=== PATIENT | female | born 1965 ===

== ENCOUNTER 2017-02-22 18:36 | Emergency (ER) | payer MEDICARE ==
--- NOTE | 2017-02-22 19:06 | ED PDOC ---
HPI: General Adult Time Seen by Provider: 02/22/17 18:45 Chief Complaint (Provider): Right Sided Facial Spasms History Per: Patient History/Exam Limitations: no limitations Onset/Duration Of Symptoms: Days (x3) Have you had recent travel within the past 21 days to any of the following countries: [place], [place], [place] or [place]?: No Current Symptoms Are (Timing): Still Present Additional Complaint(s): Heydi Lamb, a 51 year old female, who has a past medical history of spinal cord fracture presents to the ED with right sided facial spasms she has been experiencing since Saturday. The patient states that her symptoms began while she was getting her EMG done on her arms. She reports that this is her fifth episode and her symptoms occur intermittently. As per patient, she was evaluated by a neurologist who states that he was unsure whether she had a stroke or renteria's palsy. NIHSS Stroke Scale - Date/Time Evaluation Performed Date Performed: 02/22/17 - How Severe is the Stroke Level of Consciousness: 0=Alert LOC to Questions: 0=Both comments correct LOC to commands: 0=Obeys both correctly Best Gaze: 0=Normal Visual: 0=No visual loss Facial: 0=Normal Motor Arm - Left: 0=No drift Motor Arm - Right: 0=No drift Motor Leg - Left: 0=No drift Motor Leg - Right: 0=No drift Limb Ataxia: 0=Absent Sensory: 0=Normal Best Language: 0=No aphasia Dysarthia: 0=Normal articulation Extinction & Inattention (Neglect): 0=Normal, no object Score: 0 Past Medical History Reviewed: Historical Data, Nursing Documentation, Vital Signs Vital Signs: Last Vital Signs Temp 97.8 F 02/22/17 21:39 Pulse 78 02/22/17 21:39 Resp 19 02/22/17 21:39 BP 120/78 02/22/17 21:39 Pulse Ox 98 02/22/17 21:39 - Medical History PMH: Back Problems Denies: Diabetes, Hepatitis, HIV, HTN, Seizures, Sexually Transmitted Disease - Surgical History Surgical History: No Surg Hx - Family History Family History: States: Unknown Family Hx - Home Medications Home Medications: Ambulatory Orders Medication Instructions Recorded Amoxicillin/Clavulanate [Augmentin 1 tab PO BID #14 tab 08/12/15 875 MG-125 MG] predniSONE [predniSONE Tab] 20 mg PO DAILY #15 tab 08/12/15 Bacitracin Ointment [Bacitracin] 0.5 gm TOP BID #1 tube 05/26/16 Cephalexin [cephalexin] 500 mg PO TID #15 cap 05/26/16 valACYclovir [Valtrex] 1 gm PO TID #30 tab 05/26/16 Clindamycin [Cleocin] 300 mg PO TID 7 Days cap 02/22/17 - Allergies Allergies/Adverse Reactions: Allergies Allergy/AdvReac Type Severity Reaction Status Date / Time No Known Allergies Allergy Verified 02/22/17 19:02 Review of Systems ROS Statement: Except As Marked, All Systems Reviewed And Found Negative Constitutional: Positive for: Other (right facial spasms) Physical Exam - Reviewed Nursing Documentation Reviewed: Yes Vital Signs Reviewed: Yes - Physical Exam Appears: Positive for: Non-toxic, No Acute Distress Head Exam: Positive for: ATRAUMATIC, NORMAL INSPECTION (right facial spasm distracable ), NORMOCEPHALIC Skin: Positive for: Normal Color, Warm, Dry. Negative for: Rash Eye Exam: Positive for: Normal appearance, EOMI, PERRL. Negative for: Nystagmus Neck: Positive for: Normal, Painless ROM, Supple Cardiovascular/Chest: Positive for: Regular Rate, Rhythm, Chest Non Tender. Negative for: Tachycardia Respiratory: Positive for: Normal Breath Sounds. Negative for: Rales, Rhonchi, Wheezing, Respiratory Distress Gastrointestinal/Abdominal: Positive for: Normal Exam, Bowel Sounds, Soft. Negative for: Tenderness, Mass, Guarding, Rebound Back: Positive for: Normal Inspection. Negative for: L CVA Tenderness, R CVA Tenderness Extremity: Positive for: Normal ROM. Negative for: Tenderness, Deformity, Swelling Neurologic/Psych: Positive for: Alert, Oriented, Gait - Laboratory Results Result Diagrams: 02/22/17 19:20 02/22/17 19:20 - ECG O2 Sat by Pulse Oximetry: 100 (RA) Pulse Ox Interpretation: Normal Medical Decision Making Medical Decision Makin Initial Impression 51 year old female presenting with right sided facial spasm Initial Plan: * Type and Screen * CT Head w/o Contrast * EKG * CMP * Hemoglobin A1C * Lipid Panel * Troponin * CBC * Partial Thromboplastin * CXR * Glucose, Blood, PO * Vital Signs [id number] * Reevaluation Scribe Attestation Documented by Patricia Gonzalez acting as a scribe for Laura Bailey MD. Provider Attestation All medical record entries made by the Scribe were at my direction and personally dictated by me. I have reviewed the chart and agree that the record accurately reflects my personal performance of the history, physical exam, medical decision making, and the department course for this patient. I have also personally directed, reviewed, and agree with the discharge instructions and disposition. Disposition - Clinical Impression Clinical Impression: Dental abscess, Facial paresthesia - Patient ED Disposition Is Patient to be Admitted: Transfer of Care - Disposition Referrals: [facility] [Outside] Disposition: Transfer of Care Disposition Time: 19:00 Condition: STABLE Prescriptions: Clindamycin [Cleocin] 300 mg PO TID 7 Days cap Instructions: Dental Abscess (ED), Dental Caries (ED), Paresthesia (ED) Forms: [employer] (Occitan) Patient Signed Over To: Raphael Jensen
--- NOTE | 2017-02-22 19:17 | ED PDOC ---
- Laboratory Results Result Diagrams: 02/22/17 19:20 02/22/17 19:20 - ECG O2 Sat by Pulse Oximetry: 100 (RA) Pulse Ox Interpretation: Normal Medical Decision Making Medical Decision Making: Patient signed out to provider from Dr. Bailey at 1900 pending labs. 9PM: Workup negative. Informed patient of results, during exam, facial droop shifts from R to L back to R, patient states that this is normal for her and that she has had multiple workups that are inconclusive. She states that she came to ER more for prescription for antibiotics for a dental infection. Pt. has poor dentition and evidence of gingivitis and possible gum abscess. Stressed the importance of both dental followup and neuro followup. Pt. understands importance of this. Will prescribe clinda and d/c home. Return precautions given.. Scribe Attestation Documented by Patricia Gonzalez acting as a scribe for Raphael Jensen MD. Provider Attestation All medical record entries made by the Scribe were at my direction and personally dictated by me. I have reviewed the chart and agree that the record accurately reflects my personal performance of the history, physical exam, medical decision making, and the department course for this patient. I have also personally directed, reviewed, and agree with the discharge instructions and disposition. Disposition - Clinical Impression Clinical Impression: Dental abscess, Facial paresthesia - POA Present On Arrival: None - Disposition Referrals: [facility] [Outside] Disposition: Routine/Home Disposition Time: 21:00 Condition: STABLE Prescriptions: Clindamycin [Cleocin] 300 mg PO TID 7 Days cap Instructions: Dental Abscess (ED), Dental Caries (ED), Paresthesia (ED) Forms: [facility] (Yakut)
[2017-02-22 19:48] LABS: BASO # 0.1 K/uL (0.0-0.2); EOS # 0.1 K/uL (0.0-0.7); EOS % 0.5 % (0.0-4.0); LYMPH # 2.2 K/uL (1.0-4.3); LYMPH % 17.6 % (20.0-40.0); MEAN CELL VOLUME 89.5 fl (81.0-99.0); MEAN CORPUSCULAR HEMOGLOBIN 28.9 pg (27.0-31.0); MEAN CORPUSCULAR HGB CONC 32.3 g/dL (33.0-37.0); MEAN PLATELET VOLUME 7.6 fl (7.2-11.7); MONO # 0.7 K/uL (0.0-0.8); MONO % 5.5 % (0.0-10.0); NEUT # 9.6 K/uL (1.8-7.0); NEUT % 75.4 % (50.0-75.0); RED CELL DISTRIBUTION WIDTH 13.6 % (11.5-14.5); WHITE BLOOD COUNT 12.7 K/uL (4.8-10.8)
[2017-02-22 19:55] LABS: ALB/GLOB RATIO 1.3 (1.0-2.1); ALKALINE PHOSPHATASE 84 U/L (38-126); ALT/SGPT 38 U/L (9-52); AST/SGOT 25 U/L (14-36); BILIRUBIN,TOTAL 0.4 mg/dl (0.2-1.3); BLOOD UREA NITROGEN 15 mg/dl (7-17); CALCIUM 9.4 mg/dL (8.4-10.2); CARBON DIOXIDE 24 mmol/L (22-30); CHLORIDE 107 mmol/L (98-107); CHOLESTEROL 229 mg/dL (0-199); GFR AFRICAN-AMERICAN > 60; GLUCOSE,RANDOM 83 mg/dL (65-105); POTASSIUM 3.6 MMOL/L (3.6-5.0); SODIUM 140 mmol/l (132-148); TOTAL PROTEIN 7.3 G/DL (6.3-8.2)
[2017-02-22 20:11] LABS: PARTIAL THROMBOPLASTIN TIME 32.3 Seconds (25.6-37.1)
--- NOTE | 2017-02-22 20:27 | CT ---
EXAM: CT Head Without Intravenous Contrast EXAM DATE/TIME: 02/22/2017 6:49 PM CLINICAL HISTORY: 51 years old, female; Signs and symptoms; Other: Rt facial spasm; Patient HX: HX of cervical spinal cord FX; Additional info: R facial spasm TECHNIQUE: Axial computed tomography images of the head/brain without intravenous contrast. All CT scans at this facility use one or more dose reduction techniques, viz.: automated exposure control; ma/kV adjustment per patient size (including targeted exams where dose is matched to indication; i.e. head); or iterative reconstruction technique. Coronal and sagittal reformatted images were created and reviewed. COMPARISON: Prior head CT of 2016-04-04 FINDINGS: BRAIN: Diffuse, mild, age-related cortical atrophy and ventriculomegaly. No significant acute abnormality identified. No acute hemorrhage seen within the brain. No acute extra-axial fluid collections visualized. No evidence of significant mass effect within the brain. No CT findings to suggest an acute, large territorial infarct, however, small or early acute infarcts may not be visible on CT. VENTRICLES: See above. BONES/JOINTS: No acute fractures or other acute bony abnormality noted. SOFT TISSUES: No acute abnormality of the visualized soft tissues is seen. SINUSES: Visualized paranasal sinuses appear clear. MASTOID AIR CELLS: Mastoid air cells appear clear. IMPRESSION: - No acute findings seen within the brain. - See above for remaining findings.
[2017-02-22 21:40] VITALS: BP 120/78; PULSE 78; RESP 19; TEMP 97.8
--- NOTE | 2017-02-23 09:52 | RAD ---
HISTORY: Facial spasm COMPARISON: Chest radiograph 03/27/2016. FINDINGS: LUNGS: No active pulmonary disease. PLEURA: No significant pleural effusion identified, no pneumothorax apparent. CARDIOVASCULAR: Normal. OSSEOUS STRUCTURES: No significant abnormalities. VISUALIZED UPPER ABDOMEN: Normal. OTHER FINDINGS: None. IMPRESSION: No interval acute cardiopulmonary disease appreciated.
[2017-02-24 13:46] VITALS: O2SAT 100
--- NOTE | 2017-02-25 12:41 | CARD ---
APPROVED REPORT EKG Measurement Heart [id number] <Conclusion> Normal sinus rhythm Normal ECG
== END 2017-02-22 21:40 | disposition home or self-care (01) ==
LOC: H.ER 18:36
DX: K04.7 Periapical abscess without sinus (principal); R20.2 Paresthesia of skin

== ENCOUNTER 2017-06-28 15:14 | Emergency (ER) | payer MEDICARE, MEDICAID ==
[2017-06-28 15:34] VITALS: RESP 16; TEMP 98.2; O2SAT 100
--- NOTE | 2017-06-28 16:14 | ED PDOC ---
Upper Extremity Pain/Injury Time Seen by Provider: 06/28/17 15:55 Chief Complaint (Nursing): Upper Extremity Problem/Injury Chief Complaint (Provider): right elbow pain History Per: Patient (52 y/o female here with right elbow deformity noted to her. States she has had pain ongoing right arm and has had testing with cervical radiculopathy noted. Is concerned that her right elbow appears inflamed/ swelling. Denies any falls. ) Past Medical History Reviewed: Historical Data, Nursing Documentation, Vital Signs Vital Signs: Last Vital Signs Temp 98.2 F 06/28/17 15:29 Pulse 99 H 06/28/17 15:29 Resp 16 06/28/17 15:29 BP 161/93 H 06/28/17 15:29 Pulse Ox 100 06/28/17 15:29 - Medical History PMH: Back Problems Denies: Diabetes, Hepatitis, HIV, HTN, Seizures, Sexually Transmitted Disease - Family History Family History: States: Unknown Family Hx - Home Medications Home Medications: Ambulatory Orders Medication Instructions Recorded Amoxicillin/Clavulanate [Augmentin 1 tab PO BID #14 tab 08/12/15 875 MG-125 MG] predniSONE [predniSONE Tab] 20 mg PO DAILY #15 tab 08/12/15 Bacitracin Ointment [Bacitracin] 0.5 gm TOP BID #1 tube 05/26/16 Cephalexin [cephalexin] 500 mg PO TID #15 cap 05/26/16 valACYclovir [Valtrex] 1 gm PO TID #30 tab 05/26/16 Clindamycin [Cleocin] 300 mg PO TID 7 Days cap 02/22/17 Naproxen 375 mg PO Q8 PRN #15 tablet 06/28/17 - Allergies Allergies/Adverse Reactions: Allergies Allergy/AdvReac Type Severity Reaction Status Date / Time No Known Allergies Allergy Verified 06/28/17 15:30 Review of Systems ROS Statement: Except As Marked, All Systems Reviewed And Found Negative Physical Exam - Reviewed Nursing Documentation Reviewed: Yes Vital Signs Reviewed: Yes - Physical Exam Appears: Positive for: Well, Non-toxic, No Acute Distress Head Exam: Positive for: ATRAUMATIC, NORMAL INSPECTION, NORMOCEPHALIC Skin: Positive for: Normal Color, Warm, DRY Eye Exam: Positive for: EOMI, Normal appearance, PERRL ENT: Positive for: Normal ENT Inspection Neck: Positive for: Normal, Painless ROM Cardiovascular/Chest: Positive for: Regular Rate, Rhythm Respiratory: Positive for: CNT, Normal Breath Sounds Gastrointestinal/Abdominal: Positive for: Normal Exam, Bowel Sounds, Soft Back: Positive for: Normal Inspection Extremity: Positive for: Normal ROM Neurologic/Psych: Positive for: Alert, Oriented - ECG O2 Sat by Pulse Oximetry: 100 - Progress ED Course And Treament: xry of elbow: IMPRESSION: Degenerative changes as discussed above. No acute fracture, subluxation or dislocation. toradol 30 mg IM x 1 dose Patient plans to f/u with her pmd regarding cervical radiculopathy. Disposition - Clinical Impression Clinical Impression: Cervical radiculopathy - Patient ED Disposition Is Patient to be Admitted: No - Disposition Disposition Time: 17:50 Condition: FAIR Prescriptions: Naproxen 375 mg PO Q8 PRN #15 tablet PRN Reason: Pain, Moderate (4-7) Instructions: Radiculopathy (DC) Forms: [employer] (Mosotho)
--- NOTE | 2017-06-28 16:44 | RAD ---
PROCEDURE: Radiographs of the right elbow. HISTORY: elbow deformity COMPARISON: No prior. FINDINGS: BONES: Normal. No fracture. JOINTS: Cortical sclerosis at the humeral ulnar joint is identified greater than at the humeral radial joint compatible with degenerative joint disease. SOFT TISSUES: Normal. JOINT EFFUSION: None. OTHER FINDINGS: None. IMPRESSION: Degenerative changes as discussed above. No acute fracture, subluxation or dislocation.
[2017-06-28 18:03] VITALS: BP 132/89; PULSE 87
== END 2017-06-28 18:03 | disposition home or self-care (01) ==
LOC: H.ER 15:14
DX: M54.12 Radiculopathy, cervical region (principal)
CPT/HCPCS: 73080; 96372; 99283; J1885

== ENCOUNTER 2017-10-21 23:11 | Emergency (ER) | payer MEDICAID, MEDICARE ==
[2017-10-21 23:28] VITALS: RESP 18
--- NOTE | 2017-10-22 01:07 | ED PDOC ---
HPI: Eye Injury/Pain Time Seen by Provider: 10/22/17 00:45 Chief Complaint (Nursing): Eye Problem Chief Complaint (Provider): left eye swelling History Per: Patient History/Exam Limitations: no limitations Onset/Duration Of Symptoms: Days (4) Current Symptoms Are (Timing): Still Present Additional Complaint(s): 52 y/o female presents for evaluation of left eye pain/swelling x 4 days. Patient states she was evaluated at [facility] Saturday and prescribed Tobramycin drops but states swelling has gotten progressively worse since then. Denies fever, headache, dizziness, vision changes. Patient admits to stye's in left eye that required surgical intervention but states this feels different Past Medical History Reviewed: Historical Data, Nursing Documentation, Vital Signs Vital Signs: Last Vital Signs Temp 97.8 F 10/21/17 23:23 Pulse 85 10/21/17 23:23 Resp 18 10/21/17 23:23 BP 148/93 H 10/21/17 23:23 Pulse Ox 100 10/21/17 23:23 - Medical History PMH: Back Problems Denies: Diabetes, Hepatitis, HIV, HTN, Seizures, Sexually Transmitted Disease Other PMH: left eye strabismus; chronic vision defects - Surgical History Surgical History: No Surg Hx - Family History Family History: States: Unknown Family Hx - Home Medications Home Medications: Ambulatory Orders Medication Instructions Recorded Amoxicillin/Clavulanate [Augmentin 1 tab PO BID #14 tab 08/12/15 875 MG-125 MG] predniSONE [predniSONE Tab] 20 mg PO DAILY #15 tab 08/12/15 Bacitracin Ointment [Bacitracin] 0.5 gm TOP BID #1 tube 05/26/16 Cephalexin [cephalexin] 500 mg PO TID #15 cap 05/26/16 valACYclovir [Valtrex] 1 gm PO TID #30 tab 05/26/16 Clindamycin [Cleocin] 300 mg PO TID 7 Days cap 02/22/17 Naproxen 375 mg PO Q8 PRN #15 tablet 06/28/17 Clindamycin [Cleocin] 300 mg PO QID #40 cap 10/22/17 Ibuprofen [Motrin Tab] 1 tab PO Q6 PRN #20 tab 10/22/17 - Allergies Allergies/Adverse Reactions: Allergies Allergy/AdvReac Type Severity Reaction Status Date / Time No Known Allergies Allergy Verified 10/21/17 23:23 Review of Systems ROS Statement: Except As Marked, All Systems Reviewed And Found Negative Eyes: Positive for: Eyelid Inflammation (left), Redness (left) Physical Exam - Reviewed Nursing Documentation Reviewed: Yes Vital Signs Reviewed: Yes - Physical Exam Appears: Positive for: Well, Non-toxic, Uncomfortable Head Exam: Positive for: ATRAUMATIC, NORMAL INSPECTION, NORMOCEPHALIC Skin: Positive for: Normal Color Eye Exam: Positive for: Periorbital swelling (left; possible head noted to left medial upper eyelid; no fluctuance), Periorbital tenderness (left). Negative for: Conjunctival injection ENT: Positive for: Normal ENT Inspection Cardiovascular/Chest: Positive for: Regular Rate, Rhythm Respiratory: Positive for: Normal Breath Sounds Gastrointestinal/Abdominal: Positive for: Normal Exam Back: Positive for: Normal Inspection Extremity: Positive for: Normal ROM Neurologic/Psych: Positive for: Alert, Oriented - Laboratory Results Result Diagrams: 10/22/17 01:12 10/22/17 01:12 - ECG O2 Sat by Pulse Oximetry: 100 - Progress ED Course And Treament: labs, CT orbits, IV toradol EXAM: CT Orbits With Intravenous Contrast EXAM DATE/TIME: Exam ordered 10/22/2017 1:04 AM CLINICAL HISTORY: 52 years old, female; Signs and symptoms; Mass, lump, or swelling; Other: Left orbit; Prior surgery; Surgery date: 6+ months; Surgery type: Left orbitl surgery cyst/tumor per patient x 3; Additional info: Left eye swelling TECHNIQUE: Axial computed tomography images of the orbits with intravenous contrast. All CT scans at this facility use at least one of these dose optimization techniques: automated exposure control; mA and/or kV adjustment per patient size (includes targeted exams where dose is matched to clinical indication); or iterative reconstruction. CONTRAST: 85 mL of [id number] administered intravenously. COMPARISON: No relevant prior studies available. FINDINGS: Orbits: There is LEFT pre-orbital soft tissue thickening/inflammation possibly representing preorbital cellulitis. No post septal component identified. No intraorbital masses identified on either side. Sinuses: Normal. No air-fluid levels. Bones/joints: No acute fracture. Soft tissues: See above. IMPRESSION: There is LEFT pre-orbital soft tissue thickening/inflammation possibly representing preorbital cellulitis. No post septal component identified. IV clindamycin dose ordered Patient educated on findings, discharged with rx Clindamycin, ibuprofen Advised warm compresses Follow up ophthalmology Return precautions given Disposition - Clinical Impression Clinical Impression: Preseptal cellulitis of left eye - Patient ED Disposition Is Patient to be Admitted: No Counseled Patient/Family Regarding: Studies Performed, Diagnosis, Need For Followup, Rx Given - Disposition Referrals: Bryon Bello MD [Staff Provider] - Disposition: Routine/Home Disposition Time: 05:02 Condition: IMPROVED Prescriptions: Clindamycin [Cleocin] 300 mg PO QID #40 cap Ibuprofen [Motrin Tab] 1 tab PO Q6 PRN #20 tab PRN Reason: Pain, Moderate (4-7) Instructions: Orbital Cellulitis Forms: [facility] (Amharic) Print Language: BAHRAINI
[2017-10-22 01:31] LABS: BASO # 0.1 K/uL (0.0-0.2); BASO % 0.8 % (0.0-2.0); EOS # 0.2 K/uL (0.0-0.7); EOS % 1.8 % (0.0-4.0); HEMOGLOBIN 13.1 g/dL (12.0-16.0); LYMPH # 3.4 K/uL (1.0-4.3); LYMPH % 34.7 % (20.0-40.0); MEAN CORPUSCULAR HEMOGLOBIN 29.4 pg (27.0-31.0); MEAN CORPUSCULAR HGB CONC 32.7 g/dL (33.0-37.0); MEAN PLATELET VOLUME 7.7 fl (7.2-11.7); MONO # 0.9 K/uL (0.0-0.8); MONO % 8.8 % (0.0-10.0); NEUT # 5.2 K/uL (1.8-7.0); NEUT % 53.9 % (50.0-75.0); NRBC % 0.1 % (0.0-0.0); RBC 4.45 Mil/uL (3.80-5.20); RED CELL DISTRIBUTION WIDTH 14.1 % (11.5-14.5); WHITE BLOOD COUNT 9.7 K/uL (4.8-10.8)
[2017-10-22 01:38] LABS: ALB/GLOB RATIO 1.4 (1.0-2.1); ALT/SGPT 29 U/L (9-52); AST/SGOT 22 U/L (14-36); BLOOD UREA NITROGEN 14 mg/dl (7-17); CALCIUM 9.1 mg/dL (8.4-10.2); GFR AFRICAN-AMERICAN > 60; GFR NON-AFRICAN AMERICAN > 60
[2017-10-22] MEDS ORDERED: Iodixanol 320 MG/ML 100 ML BOTTLE IV ONE (01:56)
[2017-10-22] MEDS ORDERED: Sodium Chloride 0.9% 50 ML IV ONE (01:56)
[2017-10-22] MEDS ORDERED: Clindamycin 600mg/50ml NS 600 MG/50 ML BAG IVPB STA (03:54)
[2017-10-22] MEDS ORDERED: Clindamycin 600mg/50ml D5W 600 MG/50 ML VIAL IVPB STA (04:08)
[2017-10-22 05:58] VITALS: BP 115/80; PULSE 60; TEMP 97.6; O2SAT 97
--- NOTE | 2017-10-22 11:09 | CT ---
Date of service: 10/22/2017 PROCEDURE: CT MAXILLOFACIAL BONES WITH CONTRAST HISTORY: Left eye swelling. Relevant surgical history: Left orbit surgery for cyst/ tumor x3. COMPARISON: None. TECHNIQUE: Contiguous axial CT images of the maxillofacial bones were obtained following administration of IV contrast. Coronal and sagittal reformats were generated. Intravenous contrast Dose: 85 cc Omnipaque 300. Radiation dose: Total exam DLP = 486.79 mGy-cm. This CT exam was performed using one or more of the following dose reduction techniques: Automated exposure control, adjustment of the mA and/or kV according to patient size, and/or use of iterative reconstruction technique. FINDINGS: NASAL BONES: Unremarkable. ORBITS: Preseptal inflammatory changes on the left. These extend medially to soft tissues adjacent to the base of the nasal bones. The findings do not appear to affect the globe or retro Conal structures PARANASAL SINUSES/ MASTOIDS: Clear. MAXILLA: Unremarkable. MANDIBLE/ TEMPOROMANDIBULAR JOINTS: Unremarkable. SKULL BASE: Unremarkable. TEMPORAL BONES: Middle ears and mastoid grossly unremarkable. OTHER FINDINGS: None. IMPRESSION: Preseptal inflammatory changes on the left likely cellulitis. Concordant results (preliminary interpretation) provided by [employer] [facility]. Procedure Completed: 02:11. Preliminary ([facility]Rad) Report: Dictated and Authenticated: 03:40 Final Interpretation: 11:07
== END 2017-10-22 05:58 | disposition home or self-care (01) ==
LOC: H.ER 23:11
DX: H05.012 Cellulitis of left orbit (principal)
CPT/HCPCS: 70481; 80053; 81025; 85025; 96365; J1885; Q9967

== ENCOUNTER 2017-10-27 17:50 | Emergency (ER) | payer MEDICAID ==
[2017-10-27 17:57] VITALS: RESP 16; TEMP 98.7
[2017-10-27 18:37] VITALS: BP 139/79; PULSE 89; O2SAT 100
--- NOTE | 2017-10-27 18:52 | ED PDOC ---
HPI: Skin/Bite Injury Time Seen by Provider: 10/27/17 18:01 Chief Complaint (Nursing): Abnormal Skin Integrity Chief Complaint (Provider): Rash History Per: Patient History/Exam Limitations: no limitations Onset/Duration Of Symptoms: Days (x2) Current Symptoms Are (Timing): Still Present Additional Complaint(s): 52 y/o female with no significant PMHx presenting for evaluation of rash x2 days. Patient states 10/22 she was seen in this ED and discharged for an infection in her left eye. States she was discharged with an Rx for Clindamycin and given a dose of Clindamycin. She says that 2 days ago she began to develop a rash to her left forearm, chest, and bilateral groin. She reports the rash is intermittent, despite taking no medications. She states the rash is currently in its mild state. Of note, patient states that eye swelling and redness have improved drastically. PMD: None Past Medical History Reviewed: Historical Data, Nursing Documentation, Vital Signs Vital Signs: Last Vital Signs Temp 98.7 F 10/27/17 18:36 Pulse 89 10/27/17 18:36 Resp 16 10/27/17 18:36 BP 139/79 10/27/17 18:36 Pulse Ox 100 10/27/17 18:36 - Medical History PMH: Back Problems Denies: Diabetes, Hepatitis, HIV, HTN, Seizures, Sexually Transmitted Disease - Surgical History Surgical History: No Surg Hx - Family History Family History: States: Unknown Family Hx - Home Medications Home Medications: Ambulatory Orders Medication Instructions Recorded Amoxicillin/Clavulanate [Augmentin 1 tab PO BID #14 tab 08/12/15 875 MG-125 MG] predniSONE [predniSONE Tab] 20 mg PO DAILY #15 tab 08/12/15 Bacitracin Ointment [Bacitracin] 0.5 gm TOP BID #1 tube 05/26/16 Cephalexin [cephalexin] 500 mg PO TID #15 cap 05/26/16 valACYclovir [Valtrex] 1 gm PO TID #30 tab 05/26/16 Clindamycin [Cleocin] 300 mg PO TID 7 Days cap 02/22/17 Naproxen 375 mg PO Q8 PRN #15 tablet 06/28/17 Clindamycin [Cleocin] 300 mg PO QID #40 cap 10/22/17 Ibuprofen [Motrin Tab] 1 tab PO Q6 PRN #20 tab 10/22/17 Cephalexin [cephalexin] 500 mg PO Q6 #28 cap 10/27/17 - Allergies Allergies/Adverse Reactions: Allergies Allergy/AdvReac Type Severity Reaction Status Date / Time No Known Allergies Allergy Verified 10/21/17 23:23 Review of Systems ROS Statement: Except As Marked, All Systems Reviewed And Found Negative Skin: Positive for: Rash (left forearm, chest, and bilateral groin) Physical Exam - Reviewed Nursing Documentation Reviewed: Yes Vital Signs Reviewed: Yes - Physical Exam Appears: Positive for: Non-toxic, No Acute Distress Skin: Positive for: Rash (faint erythema noted to bilateral lower chest area and right groin without vesicles, pustules, or break in skin integrity) Eye Exam: Positive for: EOMI (without pain), PERRL, Other (erythematous papule with minimal erythema to left upper eyelid) ENT: Positive for: Normal ENT Inspection Cardiovascular/Chest: Positive for: Regular Rate, Rhythm. Negative for: Murmur Respiratory: Positive for: Normal Breath Sounds (speaking in full sentences). Negative for: Respiratory Distress Neurologic/Psych: Positive for: Alert, Oriented (x3) - ECG O2 Sat by Pulse Oximetry: 100 (RA) Pulse Ox Interpretation: Normal Medical Decision Making Medical Decision Makin:36 Plan: Advised to stop taking Clindamycin as she may be allergic to it. Advised to follow up with Hammer Setter or Quality Control Projectionist for allergy testing. Advised to return to ED if throat swelling, shortness of breath, or fever develop. Scribe Attestation: Documented by Kevin Dias, acting as a scribe for Adam Castro PA-C. Provider Scribe Attestation: All medical record entries made by the scribe were at my direction and personally dictated by me. I have reviewed the chart and agree that the record accurately reflects my personal performance of the history, physical exam, medical decision making, and the department course for this patient. I have also personally directed, reviewed, and agree with the discharge instructions and disposition. Disposition - Clinical Impression Clinical Impression: Rash, Hordeolum, Drug reaction - Patient ED Disposition Is Patient to be Admitted: No Counseled Patient/Family Regarding: Diagnosis, Need For Followup, Rx Given - Disposition Referrals: [facility] [Outside] Bryon Bello MD [Staff Provider] - Disposition: Routine/Home Disposition Time: 18:36 Condition: STABLE Additional Instructions: GERTRUDIS MASON, thank you for letting us take care of you today. Your provider was Penny West MD and you were treated for RASH. The emergency medical care you received today was directed at your acute symptoms. If you were prescribed any medication, please fill it and take as directed. It may take several days for your symptoms to resolve. Return to the Emergency Department if your symptoms worsen, do not improve, or if you have any other problems. Please contact your doctor or call one of the physicians/clinics you have been referred to that are listed on the Patient Visit Information form that is included in your discharge packet. Bring any paperwork you were given at discharge with you along with any medications you are taking to your follow up visit. Our treatment cannot replace ongoing medical care by a primary care provider outside of the emergency department. Thank you for allowing the [facility] team to be part of your care today. If you had an X-Ray or CT scan: A Radiologist will review the ED reading if any change in treatment is needed we will contact you. If you had a blood, urine, or wound culture: It will take several days for the results, if any change in treatment is needed we will contact you. If you had an STI test: It will take 48 hours for the results. Please call after 1 week if you have not heard back. Prescriptions: Cephalexin [cephalexin] 500 mg PO Q6 #28 cap Instructions: Stye (Hordeolum), Skin Rash (DC) Forms: [employer] (Azeri) Print Language: ITALIAN
== END 2017-10-27 18:36 | disposition home or self-care (01) ==
LOC: H.ER 17:50
DX: H00.016 Hordeolum externum left eye, unspecified eyelid (principal); T88.7XXA Unspecified adverse effect of drug or medicament, initial encounter

== ENCOUNTER 2018-02-20 22:47 | Emergency (ER) | payer OTHER, MEDICARE, MEDICAID ==
[2018-02-20 22:53] VITALS: O2SAT 97
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
[2018-02-21 02:35] VITALS: PULSE 77
[2018-02-21 02:59] VITALS: BP 144/82; RESP 17; TEMP 98.2
--- NOTE | 2018-02-21 08:39 | CARD ---
APPROVED REPORT Date of service: 02/20/2018 EKG Measurement Heart [id number] <Conclusion> Normal sinus rhythm Normal ECG
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
== END 2018-02-21 02:35 | disposition home or self-care (01) ==
LOC: H.ER 22:47
DX: Z04.1 Encounter for examination and observation following transport accident (principal)

== ENCOUNTER 2018-06-18 19:50 | Emergency (ER) | payer MEDICARE, MEDICAID ==
[2018-06-18 21:27] VITALS: BP 148/70; PULSE 81; RESP 16; TEMP 98.7; O2SAT 98
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
--- NOTE | 2018-06-19 10:44 | RAD ---
Date of service: 06/18/2018 PROCEDURE: Radiographs of Nasal Bones HISTORY: nasal injury COMPARISON: None available. TECHNIQUE: Frontal and lateral radiographs of the nasal bones. FINDINGS: No fracture of nasal bones visualized. No destructive lesion. IMPRESSION: No nasal bone fracture visualized.
== END 2018-06-18 23:28 | disposition home or self-care (01) ==
LOC: H.ER 19:50
DX: S00.83XA Contusion of other part of head, initial encounter (principal); S09.92XA Unspecified injury of nose, initial encounter; W22.8XXA Striking against or struck by other objects, initial encounter; Y92.89 Other specified places as the place of occurrence of the external cause
CPT/HCPCS: 70160; 96372; 99282; J1885